=== PATIENT | female | born 1930 | race Two or more races ===

== ENCOUNTER 2018-11-10 16:47 | Inpatient (IN) | payer OTHER ==
[~2018-11-10] VITALS: Ht 157.5 cm; Wt 54.4 kg
--- NOTE | 2018-11-10 17:00 | NUR ---
Dr. Rivera here to see pt for MSE.
--- NOTE | 2018-11-10 17:00 | NUR ---
Spoke with Delia (Psych crisis team) on the telephone and made aware of pt's need for evaluation.
[2018-11-10] MEDS ORDERED: METO-357 PO (17:15)
[2018-11-10] MEDS ORDERED: AMLO10TA7 PO (17:15)
[2018-11-10] MEDS ORDERED: ALEN70TA6 PO (17:15)
[2018-11-10] MEDS ORDERED: ASPI81TA31 PO (17:15)
[2018-11-10] MEDS ORDERED: VALP250S17 PO (17:15)
[2018-11-10] MEDS ORDERED: QUET50TA PO (17:15)
[2018-11-10] MEDS ORDERED: CHOL10005 PO (17:15)
[2018-11-10] MEDS ORDERED: GALA4TAB PO (17:15)
[2018-11-10] MEDS ORDERED: LEVO50TA8 PO (17:15)
[2018-11-10] MEDS ORDERED: DONE5TAB34 PO (17:15)
--- NOTE | 2018-11-10 17:40 | NUR ---
Pt returned from CT scan. Pt stable and nad noted upon returning to ER.
--- NOTE | 2018-11-10 18:28 | NUR ---
Delia (Crisis eval) here to see pt.
--- NOTE | 2018-11-10 18:59 | NUR ---
Received report from Reid DOWNS, assuming care of patient.
--- NOTE | 2018-11-10 20:20 | NUR ---
Report given to Ekta MORENO.
--- NOTE | 2018-11-10 20:35 | NUR ---
GPS: 88 YEAR OLD FEMALE ADMITTED FROM ER VIA [facility] UNDER Dr. MANCERA FOR DTS. ALERT AND ORIENTED TO NAME ONLY. CONFUSED TO TIME AND PLACE. PATIENT AMBULATE WITH UNSTEADY GAIT. COOPERATIVE WITH CARE. ASSISTED TO BED. V/S TAKEN. NO C/O PAIN OR DISCOMFORT AT THIS TIME. NO AGGRESSIVE BEHAVIOR NOTED. MD AWARE PATIENT IS ADMITTED IN MHU.
[2018-11-10] MEDS ORDERED: MAGNESIUM HYDROXIDE 30 ML LIQUID UDC PO PRN (20:45)
[2018-11-10] MEDS ORDERED: ACETAMINOPHEN 325 MG TABLET PO PRN (20:45)
[2018-11-10] MEDS ORDERED: MAG HYDROX/AL HYDROX/SIMETH 30 ML LIQUID UDC PO PRN (20:45)
[2018-11-10] MEDS ORDERED: ZOLPIDEM 5 MG TABLET PO PRN (20:45)
[2018-11-10] MEDS ORDERED: LORAZEPAM 0.5 MG TABLET PO PRN (20:45)
[2018-11-10 21:00] VITALS: BP 132/80
[2018-11-10 21:43] VITALS: BP 159/74
--- NOTE | 2018-11-11 06:18 | NUR ---
GPS: Remain confused and disoriented .patient calm and cooperative with nursing care. assisted with adl's. slept 8 hrs through the night. no aggressive behavior noted at this time. Resting in bed comfortably.continue plan of care.
[2018-11-11 07:30] VITALS: BP 150/72
[2018-11-11] MEDS ORDERED: LEVOTHYROXINE SODIUM 50 MCG TABLET PO SCH (07:30)
[2018-11-11] MEDS: CHOLECALCIFEROL 1,000 UNIT TABLET PO SCH (08:56)
[2018-11-11] MEDS: ASPIRIN 81 MG TAB.CHEW PO SCH (08:56)
[2018-11-11] MEDS: AMLODIPINE 10 MG TABLET PO SCH (08:56)
[2018-11-11] MEDS: METOPROLOL SUCCINATE XL 50 MG TAB.SR.24H PO SCH (08:56)
[2018-11-11] MEDS ORDERED: GALANTAMINE 4 MG TABLET PO SCH ×2 (09:00)
[2018-11-11] MEDS ORDERED: Medication Not On Formulary EA (Cholecalciferol (Vitamin D3) (Vitamin D CAPSULE) 1 CAP) PO SCH (09:00)
[2018-11-11] MEDS: DIVALPROEX 250 MG TABLET.DR PO SCH ×2 (09:14→20:55)
--- NOTE | 2018-11-11 14:02 | NUR ---
Firearms Report: SURAJ complete and submitted [employer] Firearms Report for 5150 DTO/GD certification.
[2018-11-11 15:05] LABS: *BILIRUBIN,URIN 1+ (NEGATIVE); *BLOOD, URINE Trace-intact (NEGATIVE); *CLARITY,URINE CLEAR (CLEAR); *COLOR,URINE YELLOW (YELLOW); *KETONES,URINE 1+ (NEGATIVE); LEUKOCYTE ESTERASE ,URINE NEGATIVE (NEGATIVE); NITRITE, URINE NEGATIVE (NEGATIVE); UGLUCOSE NEGATIVE (NEGATIVE)
[2018-11-11 15:23] VITALS: BP 150/67
[2018-11-11 15:50] LABS: BACTERIA,URINE R /HPF (NONE SEEN); SQUAMOUS EPITHELIAL CELL,UR MODERATE /HPF (NONE SEEN); WBC,URINE NONE SEEN /HPF (0-3)
[2018-11-11] MEDS: DONEPEZIL 10 MG TABLET PO SCH (17:10)
--- NOTE | 2018-11-11 17:50 | NUR ---
GPS Nursing: Received patient asleep on bed, patient denies of any pain, no sign of any discomfort, alert oriented x1, med compliant, encourage patient to et lunch and dinner, finished her meals 80-100% , walks around with the physical therapist, seen by , with orders made and carried out, urine specimen collected and sent to labs for UA and CS, called and spoke with [facility] regarding patients Fosamax schedule, pharmacy made aware , medication will be schedule for tomorrow morning, patient enjoys conversation and company, denies of any SI and pleasant throughout the day, will continue monitor
[2018-11-11] MEDS ORDERED: DONEPEZIL 5 MG TABLET PO SCH ×3 (18:00)
[2018-11-11] MEDS: QUETIAPINE FUMARATE 25 MG TABLET PO SCH (20:55)
[2018-11-11 22:34] VITALS: BP 139/50
[2018-11-12] MEDS ORDERED: ALENDRONATE SODIUM 70 MG TABLET PO SCH (06:00)
--- NOTE | 2018-11-12 06:00 | NUR ---
GPS: Remain calm and cooperative with medications and care . assisted with adl's. slept 8 hrs through the night. no aggressive behavior noted at this time. Resting in bed comfortably.continue plan of care.
[2018-11-12] MEDS: LEVOTHYROXINE SODIUM 50 MCG TABLET PO SCH (06:27)
[2018-11-12 07:46] LABS: BASOPHILS % (AUTO) 0.3 % (0.0-2.0); EOSINOPHILS # (AUTO) 0.2 K/uL (0.0-0.7); EOSINOPHILS % (AUTO) 3.3 % (0.0-7.0); HEMATOCRIT 36.2 % (31.2-41.9); HEMOGLOBIN 11.9 g/dL (10.9-14.3); LYMPHOCYTES # (AUTO) 1.9 K/uL (20.0-40.0); LYMPHOCYTES % (AUTO) 41.9 % (20.5-51.5); MEAN CORPUSCULAR HEMOGLOBIN 30.9 uug (24.7-32.8); MEAN CORPUSCULAR HGB CONC 33 g/dL (32.3-35.6); MEAN CORPUSCULAR VOLUME 93.9 fL (75.5-95.3); MONOCYTES # (AUTO) 0.5 K/uL (2.0-10.0); MONOCYTES % (AUTO) 11.4 % (0.0-11.0); NEUTROPHILS % (AUTO) 43.1 % (38.5-71.5); PLATELET COUNT (AUTO) 262 K/uL (179-408); RED BLOOD CELL COUNT(AUTO) 3.85 MIL/uL (3.63-4.92); WHITE BLOOD COUNT (AUTO) 4.5 K/uL (3.8-11.8)
[2018-11-12 08:11] VITALS: BP 142/52
[2018-11-12 08:33] LABS: ALANINE AMINOTRANSFERASE 17 U/L (14-59); ALKALINE PHOSPHATASE 72 U/L (50-136); ASPARTATE AMINOTRANSFERASE 17 U/L (15-37); BILIRUBIN,TOTAL 0.3 mg/dL (0.2-1.0); CARBON DIOXIDE 30 mmol/L (21-32); CHLORIDE 105 mmol/L (98-107); CREATININE 1.2 mg/dL (0.6-1.3); GLUCOSE 80 mg/dL (74-106); PHOSPHOROUS 3.9 mg/dL (2.5-4.9); POTASSIUM 3.7 mmol/L (3.5-5.1); TOTAL PROTEIN, SERUM 5.8 g/dL (6.4-8.2); UREA NITROGEN, BLOOD 23 mg/dL (7-18)
[2018-11-12] MEDS: METOPROLOL SUCCINATE XL 50 MG TAB.SR.24H PO SCH (09:05)
[2018-11-12] MEDS: ASPIRIN 81 MG TAB.CHEW PO SCH (09:06)
[2018-11-12] MEDS: DIVALPROEX 250 MG TABLET.DR PO SCH ×2 (09:06→20:02)
[2018-11-12] MEDS: CHOLECALCIFEROL 1,000 UNIT TABLET PO SCH (09:06)
[2018-11-12] MEDS: AMLODIPINE 10 MG TABLET PO SCH (09:06)
--- NOTE | 2018-11-12 15:07 | NUR ---
Initial Discharge Plan: Patient currently resides at [facility] with caregiver [[address], [place] [address]; ; Fax; ]. Patient does not recall that she was living at [facility]. SURAJ Reinsurance Accountant [facility] that the pt. may return when at baseline. SURAJ Reinsurance Accountant and SURAJ will continue to collaborate with interdisciplinary team to ensure a safe and proper discharge plan.
[2018-11-12 15:32] VITALS: BP 129/44
[2018-11-12] MEDS: DONEPEZIL 10 MG TABLET PO SCH (17:16)
[2018-11-12 20:00] VITALS: BP 149/78
[2018-11-12] MEDS: QUETIAPINE FUMARATE 25 MG TABLET PO SCH (20:02)
--- NOTE | 2018-11-13 06:14 | NUR ---
GPS: Remain confused and disoriented . calm and cooperative with nursing care and medications. assisted with adl's. slept 7 hrs through the night. no aggressive behavior noted at this time. Resting in bed comfortably.continue plan of care.
[2018-11-13] MEDS: LEVOTHYROXINE SODIUM 50 MCG TABLET PO SCH (06:17)
[2018-11-13 11:45] VITALS: BP 161/51
[2018-11-13] MEDS: CHOLECALCIFEROL 1,000 UNIT TABLET PO SCH (12:23)
[2018-11-13] MEDS: DIVALPROEX 250 MG TABLET.DR PO SCH ×2 (12:23→20:21)
[2018-11-13] MEDS: ASPIRIN 81 MG TAB.CHEW PO SCH (12:25)
[2018-11-13] MEDS: METOPROLOL SUCCINATE XL 50 MG TAB.SR.24H PO SCH (12:25)
[2018-11-13] MEDS: AMLODIPINE 10 MG TABLET PO SCH (12:26)
--- NOTE | 2018-11-13 15:25 | NUR ---
UR NOTE: farm forestry and garden workers faxed daily clinicals to egg caserVivien, at [facility] [ph: ext:[phone]; fax: ]. farm forestry and garden workers received successful fax and placed copy in patient chart. farm forestry and garden workers awaiting further authorization.
[2018-11-13 16:00] VITALS: BP 139/60
[2018-11-13] MEDS: DONEPEZIL 10 MG TABLET PO SCH (17:09)
--- NOTE | 2018-11-13 19:50 | NUR ---
received patient in her room. she is noted awake a/o x 2. noted calm and pleasant upon approached. able to ambulate with slow but steady gait and able to make her needs known. she is noted with disorganized speech, labile bx. flight of ideas. poor insight and judgment noted as to the reason for her admission to mhu. pt was reassured for her safety; bed at lowest position with wheels locked, alarm on room free from clutter and frequent head checks. will continue to monitor.
[2018-11-13] MEDS: QUETIAPINE FUMARATE 25 MG TABLET PO SCH (20:21)
[2018-11-13 20:40] VITALS: BP 131/58
[2018-11-14] MEDS: LEVOTHYROXINE SODIUM 50 MCG TABLET PO SCH (06:10)
[2018-11-14 07:30] VITALS: BP_SYST 118; BP_SYST 160; BP_DIAS 44; BP_DIAS 73
[2018-11-14] MEDS: DIVALPROEX 250 MG TABLET.DR PO SCH ×2 (08:50→20:29)
[2018-11-14] MEDS: AMLODIPINE 10 MG TABLET PO SCH (08:51)
[2018-11-14] MEDS: CHOLECALCIFEROL 1,000 UNIT TABLET PO SCH (08:51)
[2018-11-14] MEDS: ASPIRIN 81 MG TAB.CHEW PO SCH (08:51)
[2018-11-14] MEDS: METOPROLOL SUCCINATE XL 50 MG TAB.SR.24H PO SCH (08:51)
--- NOTE | 2018-11-14 14:27 | NUR ---
UR NOTE: disposal worker faxed daily clinicals to behavioral health case managerVivien, at [facility] [ph: ext:[phone]; fax: ]. disposal worker received successful fax and placed copy in patient chart. disposal worker awaiting further authorization.
[2018-11-14 16:00] VITALS: BP 143/74
[2018-11-14] MEDS: DONEPEZIL 10 MG TABLET PO SCH (17:56)
[2018-11-14 20:10] VITALS: BP 122/60
[2018-11-14] MEDS: QUETIAPINE FUMARATE 25 MG TABLET PO SCH (20:29)
--- NOTE | 2018-11-15 01:07 | NUR ---
RECEIVED PATIENT IN THE HALLWAY, SITTING IN A WARD CHAIR. SHE IS NOTED A/O X 1. SHE NEEDS ASSISTANCE WITH AMBULATION AND ADLs. TANGENTAL, FLIGHT OF IDEAS, BRIGHT AFFECT. HOWEVER, NO AGGRESSIVE/COMBATIVE BX NOTED AT THIS TIME. SAFETY WAS EMPHASIS, PT WAS REASSURED FOR HER SAFETY.
[2018-11-15] MEDS: LEVOTHYROXINE SODIUM 50 MCG TABLET PO SCH (06:52)
[2018-11-15 07:30] VITALS: BP 141/57
[2018-11-15] MEDS: ASPIRIN 81 MG TAB.CHEW PO SCH (08:05)
[2018-11-15] MEDS: CHOLECALCIFEROL 1,000 UNIT TABLET PO SCH (08:05)
[2018-11-15] MEDS: METOPROLOL SUCCINATE XL 50 MG TAB.SR.24H PO SCH (08:06)
[2018-11-15] MEDS: DIVALPROEX 250 MG TABLET.DR PO SCH ×2 (08:06→20:27)
[2018-11-15] MEDS: AMLODIPINE 10 MG TABLET PO SCH (08:06)
--- NOTE | 2018-11-15 15:00 | NUR ---
SUNDAY DC NOTE: Patient will be discharged back to her board and care, [facility] [[address] [place] [address]; ]. Transportation will be provided by Lesviamichi Tej [[phone]], patient family friend, between 3-3:30pm. Patient is alert and oriented x1, denies SI/HI, and is able to plan for self-care. submarine worker called and spoke with patient son/DPOA, Antione Urena [[phone]], informing him of patient discharge. submarine worker has called and spoken with board and disabilities caregiver, Madhav [[phone]], who is states he is ready to accept patient back to facility. Patient currently follows-up with outpatient psychiatrist, Dr. Catherine Cornelius [[address], [address] [place] [address]; ]. Appointments are being arranged by business case analyst, Yuri, with [facility] [ ext. [phone]] who will follow-up with this publicity writer when the appointments have been scheduled. If patient is in need of psychiatric follow-up sooner, she has been provided with a referral to [facility] [ [place] [address]; ] where patient can walk-in for appointment Sunday thru Sunday anytime between 8:00pm-5:00pm. Patient also follows-up as an outpatient with his primary care physician, Dr. Eric James [[address], [place] [address]; ]. Continuing care packets have been faxed to physicians. Patient is aware and agreeable with discharge plan. Patient was provided with outpatient mental health resources to [facility] [ ], [facility] [ ], and the National Suicide Prevention Lifeline [ ].
--- NOTE | 2018-11-15 16:17 | NUR ---
UR NOTE: welfare case worker faxed discharge clinicals to outpatient case managerVivien, at [facility] [ph: ext:[phone]; fax: ]. Patient will be discharged back to board and care tomorrow, 11/16/2018. Social has informed [facility] outpatient case manager.
[2018-11-15] MEDS: DONEPEZIL 10 MG TABLET PO SCH (17:12)
--- NOTE | 2018-11-15 18:11 | NUR ---
received patient alert on bed with verbally responsive, patient slept mostly during the day, patient needs to be prompt to able to eat, medication compliant , able to eat her dinner, will continue monitor
[2018-11-15 20:06] VITALS: BP 115/45
[2018-11-15] MEDS ORDERED: QUETIAPINE FUMARATE 25 MG TABLET PO SCH (21:00)
[2018-11-15] MEDS ORDERED: QUETIAPINE FUMARATE 100 MG TABLET PO SCH (21:00)
[2018-11-16] MEDS: LEVOTHYROXINE SODIUM 50 MCG TABLET PO SCH (06:04)
[2018-11-16 07:30] VITALS: BP 110/49
[2018-11-16] MEDS: CHOLECALCIFEROL 1,000 UNIT TABLET PO SCH (08:45)
[2018-11-16] MEDS: ASPIRIN 81 MG TAB.CHEW PO SCH (08:45)
[2018-11-16] MEDS: DIVALPROEX 250 MG TABLET.DR PO SCH (08:46)
[2018-11-16 09:00] VITALS: BP 110/49
[2018-11-16] MEDS: METOPROLOL SUCCINATE XL 50 MG TAB.SR.24H PO SCH (09:00)
[2018-11-16] MEDS: AMLODIPINE 10 MG TABLET PO SCH (09:00)
--- NOTE | 2018-11-16 15:15 | NUR ---
GPS: Nursing Notes: Discharge Notes: Patient is awake and responding to her name, cooperative with nursing care, compliant with her medications, A/Ox2, needs minimal assistance with ADL's, denies any SI/HI, denies any AH/VH, denies any pain or discomfort, denies any SOB, following staff directions. Discharge to [facility], [facility] at [address] [place], [place] [id number] . Transportation provided by Serv[facility] Burnham . rehabilitation worker spoke with patient's son/DPOA, Antione Urena whom has agreed with patient's dicharge plans, per healthcare social worker, [facility] director, Madhav [phone] is accepting the patient back to facility. Patient currently follow up with psychiatrist, Catherine Guajardo at [address] [place], [place], [place] [id number] . Appointments are being arranged by leather case finisher, Yuri, with [facility] ext. [phone]. Patient also follows up with primary care physian, Dr. Eric James at [address], [place] [address] . Patient was provided with outpatient mental health resources to [facility] , [facility] , and the National Suicide Prevention Lifeline .
--- NOTE | 2018-11-18 10:35 | NUR ---
Discharge Follow-Up: viscose department worker received follow-up appointment details from correctional case records supervisor, Yuri, at [facility] [ ; ]. The following appointments have been arranged: Psychiatrist, Dr. Jake Christian, on Tuesday, November 20, 2018 at 10:30am [[address] [place] [address]; ] Psychiatrist, Dr. Jake Christian on Sunday, December 16, 2018 at 11:00am [[address] [place] [address], [address]; ]. viscose department worker called and left a voicemail for patient son, Antione Urena [[phone]], requesting call back to provide information on follow-up appointments. Addendum: 11/19/18 at 1248 by HERVE RUELAS Additional Information: viscose department worker received callback from [place] and social sciences chair provided him with the follow-up appointment information.
== END 2018-11-16 15:15 | DRG 885 ==
LOC: ER 16:50 → GPS 20:24
PROVIDERS: ADMIT Psychiatry & Neurology Psychiatry; ATTEND Internal Medicine
DX: F29 Unspecified psychosis not due to a substance or known physiological condition (principal); F01.51 Vascular dementia, unspecified severity, with behavioral disturbance; F02.81 Dementia in other diseases classified elsewhere, unspecified severity, with behavioral disturbance; D68.59 Other primary thrombophilia; J98.11 Atelectasis; E44.1 Mild protein-calorie malnutrition; G30.9 Alzheimer's disease, unspecified; Z86.73 Personal history of transient ischemic attack (TIA), and cerebral infarction without residual deficits; Z79.82 Long term (current) use of aspirin; Z79.899 Other long term (current) drug therapy; M19.90 Unspecified osteoarthritis, unspecified site; M81.0 Age-related osteoporosis without current pathological fracture; E55.9 Vitamin D deficiency, unspecified; E03.9 Hypothyroidism, unspecified; Z74.09 Other reduced mobility; Z68.21 Body mass index [BMI] 21.0-21.9, adult; E86.0 Dehydration; I10 Essential (primary) hypertension; E77.8 Other disorders of glycoprotein metabolism; G31.9 Degenerative disease of nervous system, unspecified
CPT/HCPCS: 36415; 70450; 71045; 80164; 83735; 84100; 84443; 84480; 85025; 87086; 93005; 97110; 97116; 97530; A4663; J3490; J8499